=== PATIENT | male | born 1980 | race Two or more races ===

== ENCOUNTER 2021-12-06 12:38 | Emergency (ER) | payer OTHER ==
[2021-12-06 12:47] VITALS: RESP 18; TEMP 98.1
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
[2021-12-06 17:56] VITALS: BP 103/68; PULSE 96
== END 2021-12-06 13:30 | disposition home or self-care (01) ==
LOC: EC 12:38
DX: F15.10 Other stimulant abuse, uncomplicated (principal); F17.200 Nicotine dependence, unspecified, uncomplicated; Z86.74 Personal history of sudden cardiac arrest
CPT/HCPCS: 93005; 99283